=== PATIENT | female | born 1985 | race Caucasian/White ===

== ENCOUNTER 2017-01-31 06:07 | Inpatient (IN) | payer OTHER ==
[2017-01-31] MEDS ORDERED: LIDOCAINE 1% 30 ML SDV ONE (06:15)
[2017-01-31] MEDS ORDERED: AMMONIA AROMATIC 1 EACH AMP IH ONE (06:15)
[2017-01-31] MEDS ORDERED: OXYTOCIN 10 UNIT/ML VIAL ONE (06:15)
[2017-01-31] MEDS ORDERED: OLIVE OIL 118 ML BTL ONE (06:15)
[2017-01-31] MEDS ORDERED: TERBUTALINE SULFATE 1 MG/ML VIAL ONE (06:15)
[2017-01-31] MEDS ORDERED: MISOPROSTOL 200 MCG TAB ONE (06:16)
[2017-01-31] MEDS ORDERED: LR 1,000 ML IV PRN (07:22)
[2017-01-31] MEDS ORDERED: OLIVE OIL 118 ML BTL MISC PRN (07:22)
[2017-01-31] MEDS ORDERED: OXYTOCIN/RINGERS LACTATE 1,000 ML IV PRN (07:22)
[2017-01-31] MEDS ORDERED: TERBUTALINE SULFATE 1 MG/ML VIAL IV PRN (07:22)
[2017-01-31] MEDS ORDERED: LIDOCAINE 1% 30 ML SDV SC PRN (07:22)
[2017-01-31] MEDS ORDERED: EPSOM SALT 454 GM TP PRN (07:22)
--- NOTE | 2017-01-31 09:56 | GHP ---
[f rep st] HISTORY AND PHYSICAL DATE OF ADMISSION: 01/31/2017 ADMITTING DIAGNOSES: Intrauterine at 41 and 10/06 weeks' gestation with spontaneous labor . HISTORY OF PRESENT ILLNESS: The patient is a 31-year-old 2, para 0-0-1-0, with a last menst rual period of 04/17/2016 and an EDC of 01/23/2017, which was confirmed by an 8-week ultrasound. Jayde lott has had good care at [facility], [place] since registration at 8 weeks' gestation and jayde lott has had a relatively uncomplicated course. Her risk factors include hypothyroid ism which she is treated with levothyroxine and she has been monitored and dosed appropriately throu gh this . She is heterozygous for factor V Leiden, and she has been on aspirin daily, but she has no personal history of thrombotic events. 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 They became increasing in intensity and frequency and she b jana experiencing a small amount of bleeding with wiping. No leakage of fluid and has had good feta l movement. Upon presentation to Labor and Delivery, initially her contractions were every 5-7 evette laura. Her cervix was 2 cm and 70%. The patient was allowed to ambulate, have intermittent monitorin g and was checked 2 hours later and her cervix has progressed to 4 and 70, -2. Contractions are get ting more intense and the decision was made to proceed with admission for labor. The patient is fee ling well other than her labor contractions. She ate breakfast with a good appetite, no nausea, vom iting, and she has no other constitutional symptoms. Her review of systems is negative other than h er labor contractions. PAST OBSTETRICAL HISTORY: In December 2015 she had a missed and a d and C, and then this is h er second . PAST GYNECOLOGICAL HISTORY: She has no significant past gynecological history. She has a normal me nstrual triad. She has no history of any abnormal Paps. She has used control pills and condo ms for control and has no history of any STDs. PAST MEDICAL HISTORY: Hypothyroidism. She is on levothyroxine 50 mcg daily and has been followed i n this to ensure that the dose is appropriate. She is heterozygous for factor V Leiden di agnosed because of family history. Her mother and her sister all of them are heterozygous for facto r V Leiden. No other medical problems. SURGICAL HISTORY: She has a history of an appendectomy, wisdom teeth extraction and her D and C. ALLERGIES: She has no known drug allergies. MEDICATIONS: Include levothyroxine 50 mcg daily, vitamins and folic acid. LABS: She is A positive, antibody negative, RPR nonreactive, rubella immune, hepatitis negative, HI V negative, gonorrhea and chlamydia negative. 1-hour GTT 118. GBS is negative. SOCIAL HISTORY: She is to Jose Carlos. He works at [employer]. 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 They a re from [place]. She denies tobacco, alcohol, and drug use. FAMILY HISTORY: Paternal aunt had a DVT. Mother, sister and patient oral heterozygous for factor V . sister has asthma. Mother has hypothyroidism. Maternal grandmother had diabetes and dementia as her only family history. OBJECTIVE: VITAL SIGNS: Today she is afebrile. Vital signs are stable. heart tones are in the 130s, reactive, moderate variability, category 1. She is kim every 4-5 minutes. PELVIS : Repeat cervical exam is 4, 70, -2 with bloody show and bag of water intact. Remainder of her phy sical exam is normal. ASSESSMENT/PLAN: A 31-year-old, 2, para 0-0-1-0, at 41 and 1/7th weeks' gestation in early active labor. The patient will be admitted and have expectant management for now. We will check he r cervix periodically and augment labor if indicated. /[id number]/MODL
[2017-01-31 09:59] LABS: % IMMATURE GRANULYOCYTES 0.7 % (0.0-1.1); ABSOLUTE IMMATURE GRANULOCYTES 0.09 10^3/uL (0.00-0.10); ADD DIFF? NO; ADD MORPH? NO; ADD SCAN? NO; ATYPICAL LYMPHOCYTE FLAG 0 (0-99); FRAGMENT RBC FLAG 0 (0-99); HEMATOCRIT 38.2 % (38.0-47.0); HEMOGLOBIN 13.6 g/dL (12.6-16.3); LEFT SHIFT FLG 0 (0-99); LIPEMIA HEMOLYSIS FLAG 90 (0-99); MEAN CELL HEMOGLOBIN CONCENTR. 35.6 g/dL (32.4-36.7); MEAN CELL VOLUME 92.7 fL (81.5-99.8); MEAN PLATELET VOLUME 9.1 fL (8.7-11.7); PLATELET CLUMPS FLAG 30 (0-99); PLATELET COUNT 225 10^3/uL (150-400); RED BLOOD CELL COUNT 4.12 10^6/uL (4.18-5.33); RED CELL DISTRIBUTION WIDTH 13.1 % (11.5-15.2)
--- NOTE | 2017-01-31 13:12 | OBPROG ---
OBG Progress Note Assessment/Plan: Assessment: 31 y/o @ 41 1/7 weeks in labor Plan: AROM now and will monitor progress, discussed pain management options with NO or epidural if she desires. Will check in 2-3 hours. 01/31/17 13:11 Subjective: Pt is doing well coping with stronger contractions. She is ambulating and has good energy. Objective: 01/31/17 09:30 Patient ABO/Rh A POSITIVE 01/31/17 09:30 - SVE Dilation (cm): 6 Effacement (%): 90 Station: 0 Current Contraction Pattern: Regular (Q 3-5) FHR (bpm): 140 FHR Pattern Variability: Moderate FHR Category: 1 Membranes: AROM Amniotic Fluid Color: Clear ICD10 Worksheet Patient Problems: Problems Problem Status Onset Active labor at term Acute - ICD10 Problem Qualifiers (1) Active labor at term
[2017-01-31] MEDS ORDERED: BUPIVACAINE 0.25% 30 ML SDV ONE (15:20)
[2017-01-31] MEDS ORDERED: fentaNYL 2MCG/ML/BUP 0.1% RTU 100 ML BAG EP ONE (15:20)
[2017-01-31] MEDS ORDERED: PHENYLEPHRINE HCL 100 MCG/ML SYR ONE (15:20)
[2017-01-31] MEDS ORDERED: fentaNYL 100 MCG/2 ML INJ ONE (15:20)
[2017-01-31] MEDS ORDERED: LR 500 ML IV SCH (16:30)
--- NOTE | 2017-01-31 17:04 | OBPROG ---
OBG Progress Note Assessment/Plan: Assessment: 31 y/o @ 41 1/7 weeks in labor Plan: Pt is comfortable with her epidural, and status is reassuring. We may need to augment contractions with pitocin, will monitor closely. 01/31/17 13:11 01/31/17 17:02 Subjective: Pt is doing well now comfortable with her epidural. Objective: 01/31/17 09:30 Patient ABO/Rh A POSITIVE 01/31/17 09:30 - SVE Dilation (cm): 8 Effacement (%): 90 Station: 0 Current Contraction Pattern: Regular (Q 5-7 ) FHR (bpm): 140 FHR Pattern Variability: Moderate FHR Category: 1 Membranes: AROM Amniotic Fluid Color: Clear, Meconium Stained-Heavy (140) ICD10 Worksheet Patient Problems: Problems Problem Status Onset Active labor at term Acute - ICD10 Problem Qualifiers (1) Active labor at term
[2017-01-31] MEDS ORDERED: LR 500 ML IV PRN (17:08)
[2017-01-31] MEDS ORDERED: OXYTOCIN/RINGERS LACTATE 500 ML IV SCH (17:30)
--- NOTE | 2017-01-31 18:49 | OBPROG ---
OBG Progress Note Assessment/Plan: Assessment: Plan: Subjective: patient comfortable with epidural. contractions have spaced out a little. no change in cervix in the last hour and a half. will start pitocin augmentation. left leg too numb to position into hands and knees. will continue repositioning. Objective: 01/31/17 09:30 Patient ABO/Rh A POSITIVE 01/31/17 09:30 - SVE Dilation (cm): 7, 8 Effacement (%): 90 Station: -1 Current Contraction Pattern: Regular FHR Pattern Variability: Moderate FHR Category: 1 Membranes: AROM Amniotic Fluid Color: Clear ICD10 Worksheet Patient Problems: Problems Problem Status Onset Active labor at term Acute
--- NOTE | 2017-01-31 20:01 | OBPROG ---
OBG Progress Note Assessment/Plan: Assessment: Plan: Subjective: patient is still comfortable. feeling slight rectal pressure. decreased variability. positive scalp stimulation. pitocin at 4 mu. anterior lip. will sit in high folwers and labor down and turn off epidural so patient will be able to feel to push. Objective: 01/31/17 09:30 Patient ABO/Rh A POSITIVE 01/31/17 09:30 - SVE Dilation (cm): 9, 10 Effacement (%): 100 Station: -1 Current Contraction Pattern: Irregular FHR Pattern Variability: Minimal ICD10 Worksheet Patient Problems: Problems Problem Status Onset Active labor at term Acute
--- NOTE | 2017-01-31 20:48 | OBPROG ---
OBG Progress Note Assessment/Plan: Assessment: Plan: Subjective: patient is complete. tried pushing with several contractions. slight progress with pushing but patient is still very numb. starting to feel some of contractions in her back. discussed plan will labor down for 30 more minutes and then begin pushing again. status reassuring. Objective: 01/31/17 09:30 Patient ABO/Rh A POSITIVE 01/31/17 09:30 - SVE Dilation (cm): 10 Effacement (%): 100 Station: 0 Current Contraction Pattern: Regular FHR Pattern Variability: Moderate FHR Category: 2 ICD10 Worksheet Patient Problems: Problems Problem Status Onset Active labor at term Acute
--- NOTE | 2017-01-31 21:54 | OBPROG ---
OBG Progress Note Assessment/Plan: Assessment: Plan: Subjective: patient began having significant pain when epidural wore off so it was restarted. patient pushing well now. continuing to make progress. Objective: 01/31/17 09:30 Patient ABO/Rh A POSITIVE 01/31/17 09:30 - SVE Dilation (cm): 10 Effacement (%): 100 Station: +1 Current Contraction Pattern: Regular FHR Pattern Variability: Moderate FHR Category: 2 ICD10 Worksheet Patient Problems: Problems Problem Status Onset Active labor at term Acute
[2017-01-31 23:40] LABS: BASE EXCESS CORD -4.1 mEq/L (-13.6--3.2); CORD BLOOD PCO2 55.4 mmHg (37-60); PH ARTERIAL CORD BLOOD 7.25 (7.10-7.37)
[2017-01-31 23:47] LABS: PH VENOUS CORD BLOOD 7.37 (7.20-7.42)
[2017-02-01] MEDS ORDERED: HYDROCORTISONE 0.5% CREAM TP PRN (00:40)
[2017-02-01] MEDS ORDERED: ACETAMINOPHEN 325 MG TAB PO PRN (00:40)
[2017-02-01] MEDS ORDERED: SIMETHICONE 80 MG TAB CHEW PO PRN (00:40)
--- NOTE | 2017-02-01 00:40 | OBPROC ---
- Labor and Delivery Onset of Contractions Date: 01/31/17 Onset of Contractions Time: 00:01 Onset of Contractions Type: Augmented Rupture of Membranes Date: 01/31/17 Rupture of Membranes Time: 13:05 Rupture of Membranes Type: Artificial Amniotic Fluid Color: Clear Dilation Complete Time: 20:20 Delivery Type: Vacuum Placenta Delivery Date: 01/31/17 Placenta Delivery Time: 23:25 Episiotomy/Laceration: 2nd Degree Repair: 3-0, Vicryl EBL: 300 Complications: Nuchal Cord (x2) Cord Gases: Cord Gases Cord Blood PCO2 55.4 mmHg (37-60) 01/31/17 23:22 Cord Base Excess -4.1 mEq/L (-13.6--3.2) 01/31/17 23:22 Cord ABG pH 7.25 (7.10-7.37) 01/31/17 23:22 Cord VBG pH 7.37 (7.20-7.42) 01/31/17 23:22 - Medications Labor Augmentation/Induction Meds Used: Pitocin Labor Augmentation/Induction Indication: Advance Dilation Anesthesia: Epidural - Conrad Info A Delivery Date: 01/31/17 Delivery Time: 23:22 Sex of : Male Score (1 Min): 8 Score (5 Min): 9
[2017-02-01] MEDS: IBUPROFEN 600 MG TAB PO PRN ×4 (01:40→20:29)
[2017-02-01 04:28] VITALS: RESP 16
[2017-02-01] MEDS: LEVOTHYROXINE 50 MCG TAB PO SCH (07:00)
--- NOTE | 2017-02-01 07:56 | OBPROG ---
OBG Progress Note Assessment/Plan: Assessment: 1) s/p VAVD PPD # 1 - pt is stable 2) Hypothyroidism - stable on meds Plan: Continue routine pp care Will start levo 50 mcg Encourage ambulation Plan for d/c home in am 5/6 02/01/17 07:55 Subjective: Pt seen and examined. Doing well, some cramping. Moderate lochia. Pt is OOB, emmy regular diet, voiding and passing flatus. BF without difficulty. Objective: 01/31/17 09:30 Patient ABO/Rh A POSITIVE 01/31/17 09:30 Temp Pulse Resp BP Pulse Ox 36.7 C 94 16 104/59 L 95 02/01/17 02:30 02/01/17 04:10 02/01/17 02:30 02/01/17 04:10 02/01/17 02:30 Uterine Position/Fundal Height: Umbilicus -2 Uterine Tone: Firm - Physical Exam Respiratory: lungs clear, normal breath sounds Cardiac/Chest: regular rate, rhythm Abdomen: normal bowel sounds, non-tender, soft, flatus (+) Genitourinary: laceration (intact), lochia (moderate) Extremities: non-tender, normal inspection Neuro/Psych: alert, normal mood/affect, oriented x 3 ICD10 Worksheet Patient Problems: Problems Problem Status Onset Active labor at term Acute Vacuum extractor delivery, delivered Acute
[2017-02-01] MEDS: DOCUSATE SODIUM 100 MG CAP PO SCH ×2 (08:03→20:29)
[2017-02-01] MEDS ORDERED: THYROID PO SCH (09:00)
[2017-02-01] MEDS: HYDROCODONE/APAP 5/325 TAB PO PRN ×3 (14:20→22:50)
[2017-02-02] MEDS: IBUPROFEN 600 MG TAB PO PRN ×3 (02:28→15:36)
[2017-02-02] MEDS: LEVOTHYROXINE 50 MCG TAB PO SCH (06:07)
--- NOTE | 2017-02-02 07:49 | OBPROG ---
OBG Progress Note Assessment/Plan: Assessment: 1) s/p VAVD PPD # 2 - pt is stable 2) Hypothyroidism - stable on meds Plan: Continue routine pp care Plan for d/c home later today after consult Instructions reviewed Rx given for Motrin and [place] Cont PNV Pelvic rest RTC in 4 and 6 weeks 02/02/17 07:47 Subjective: Pt seen and examined. Doing well, no complaints. Minimal cramping. Moderate lochia. Pt is OOB, emmy reg diet, voiding and passing flatus. No BM. Some difficulty with . Objective: 01/31/17 09:30 Patient ABO/Rh A POSITIVE 01/31/17 09:30 Temp Pulse Resp BP Pulse Ox 36.1 C 82 16 107/62 95 02/01/17 21:15 02/01/17 21:15 02/01/17 21:15 02/01/17 21:15 02/01/17 21:15 Uterine Position/Fundal Height: Umbilicus -2 Uterine Tone: Firm - Physical Exam General Appearance: WD/WN, alert, no apparent distress Respiratory: lungs clear, normal breath sounds Cardiac/Chest: regular rate, rhythm Abdomen: normal bowel sounds, non-tender, soft, flatus (+) Genitourinary: laceration (intact), lochia (moderate) Extremities: non-tender, normal inspection Neuro/Psych: alert, normal mood/affect, oriented x 3 ICD10 Worksheet Patient Problems: Problems Problem Status Onset Active labor at term Acute Vacuum extractor delivery, delivered Acute
[2017-02-02 08:55] VITALS: BP 103/63; PULSE 87; TEMP 97.4; O2SAT 97
[2017-02-02] MEDS ORDERED: THYROID PO SCH (09:00)
[2017-02-02] MEDS: HYDROCODONE/APAP 5/325 TAB PO PRN (09:13)
[2017-02-02] MEDS: DOCUSATE SODIUM 100 MG CAP PO SCH (09:14)
== END 2017-02-02 18:51 | disposition home or self-care (01) | DRG 775 ==
LOC: OBSVTOIN 06:07 → FLD 06:07 → FOB 02-01 02:15
PROVIDERS: ADMIT Obstetrics & Gynecology; ATTEND Obstetrics & Gynecology
DX: O70.1 Second degree perineal laceration during delivery (principal); O69.81X0 Labor and delivery complicated by cord around neck, without compression, not applicable or unspecified; O99.282 Endocrine, nutritional and metabolic diseases complicating pregnancy, second trimester; E03.9 Hypothyroidism, unspecified; O48.0 Post-term pregnancy; Z3A.41 41 weeks gestation of pregnancy; Z37.0 Single live birth
CPT/HCPCS: J2370; J2590; J3010; J3105